=== PATIENT | female | born 1955 | race Caucasian/White ===

== ENCOUNTER → 2018-04-30 | Outpatient (CLI) | payer OTHER ==
[2012-04-18 09:20] VITALS: BP 124/84
[2018-04-30 10:06] LABS: EOS # 0.3 (0.04-0.40); EOS % 5.6 % (1.0-5.0); HEMATOCRIT 37.8 % (37.0-47.0); HEMOGLOBIN 11.9 g/dL (12.5-16.0); LYMPH# 1.9 (1.50-4.00); MEAN CELL VOLUME 94 fl (78-100); MEAN CORPUSCULAR HEMOGLOBIN 30 pg (27-31); MEAN CORPUSCULAR HGB CONC 32 g/dL (33-37); MEAN PLATELET VOLUME 10.1 fl (7.4-10.4); MONO # 0.4 (0.20-0.80); NEU # 2.4 (1.40-6.50); PLATELET COUNT 211 K/mm3 (130-400); RED BLOOD COUNT 4.03 M/mm3 (4.10-5.30); RED CELL DISTRIBUTION WIDTH 14.2 % (11.5-14.5)
[2018-04-30 10:21] LABS: ALBUMIN 3.7 g/dL (3.5-5.0); BUN/CREATININE RATIO 33.2 (6.0-26.0); CALCIUM 8.9 mg/dL (8.4-10.2); POTASSIUM 4.5 mmol/L (3.6-5.0); TOTAL BILIRUBIN 0.3 mg/dL (0.2-1.3); TOTAL PROTEIN 7.6 g/dL (6.3-8.2)
== END ==
LOC: LAB 09:49
PROVIDERS: Nurse Practitioner Family
DX: F33.1 Major depressive disorder, recurrent, moderate (principal); M51.37 Other intervertebral disc degeneration, lumbosacral region; N76.1 Subacute and chronic vaginitis

== ENCOUNTER → 2020-04-23 | Outpatient (CLI) | payer OTHER ==
[2012-04-18 09:20] VITALS: BP 124/84
[2020-04-23 16:36] LABS: EOS # 0.2 (0.04-0.40); HEMOGLOBIN 11.7 g/dL (12.5-16.0); LYMPH# 2.2 (1.50-4.00); MEAN CELL VOLUME 95 fl (78-100); MEAN CORPUSCULAR HEMOGLOBIN 30 pg (27-31); MEAN CORPUSCULAR HGB CONC 32 g/dL (33-37); MEAN PLATELET VOLUME 10.2 fl (7.4-10.4); MONO # 0.4 (0.20-0.80); NEU # 3.1 (1.40-6.50); PLATELET COUNT 214 K/mm3 (130-400); RED BLOOD COUNT 3.91 M/mm3 (4.10-5.30); RED CELL DISTRIBUTION WIDTH 13.4 % (11.5-14.5)
[2020-04-23 16:40] LABS: ALBUMIN 3.9 g/dL (3.4-4.8); POTASSIUM 4.1 mmol/L (3.5-5.1)
[2020-04-23 16:42] LABS: CALCIUM 9.4 mg/dL (8.3-10.5)
[2020-04-23 16:43] LABS: TOTAL PROTEIN 7.3 g/dL (6.2-8.1)
[2020-04-23 16:45] LABS: TOTAL BILIRUBIN 0.3 mg/dL (0.2-1.2)
== END ==
LOC: LAB 16:18
PROVIDERS: Physician Assistant
DX: Z13.220 Encounter for screening for lipoid disorders (principal); Z23 Encounter for immunization; Z76.89 Persons encountering health services in other specified circumstances; R63.5 Abnormal weight gain; Q82.9 Congenital malformation of skin, unspecified

== ENCOUNTER → 2021-11-23 | Outpatient (CLI) | payer MEDICARE, OTHER | LOC: MAMMO 11-16 14:30 | DX: Z12.31 Encounter for screening mammogram for malignant neoplasm of breast (principal) ==

== ENCOUNTER → 2021-12-01 | Outpatient (CLI) | payer MEDICARE, OTHER | LOC: RAD 16:33 | DX: M25.571 Pain in right ankle and joints of right foot (principal) ==

== ENCOUNTER → 2022-03-02 | Outpatient (CLI) | payer MEDICARE, OTHER | LOC: RAD 13:49 | DX: S99.912A Unspecified injury of left ankle, initial encounter (principal); X58.XXXA Exposure to other specified factors, initial encounter ==

== ENCOUNTER → 2022-09-14 | Outpatient (CLI) | payer MEDICARE, OTHER | LOC: RAD 15:18 | DX: M79.641 Pain in right hand (principal); M79.89 Other specified soft tissue disorders ==

== ENCOUNTER → 2023-12-06 | Outpatient (CLI) | payer MEDICARE, OTHER | LOC: RAD 16:43 | DX: M51.36 Other intervertebral disc degeneration, lumbar region (principal); M48.061 Spinal stenosis, lumbar region without neurogenic claudication; M43.16 Spondylolisthesis, lumbar region; M48.07 Spinal stenosis, lumbosacral region; Z98.1 Arthrodesis status | CPT/HCPCS: A9575 ==

== ENCOUNTER → 2024-02-14 | Outpatient (CLI) | payer MEDICARE, OTHER ==
[2024-02-14 16:22] LABS: BASO # 0.02 K/mm3 (0.02-0.10); EOS # 0.16 K/mm3 (0.04-0.40); EOS % 2.5 % (1.0-5.0); HEMATOCRIT 37.7 % (37.0-47.0); HEMOGLOBIN 12.2 g/dL (12.5-16.0); LYMPH# 1.97 K/mm3 (1.50-4.00); MEAN CELL VOLUME 94 fl (78-100); MEAN CORPUSCULAR HEMOGLOBIN 30 pg (27-31); MEAN CORPUSCULAR HGB CONC 32 g/dL (33-37); MEAN PLATELET VOLUME 9.8 fl (7.4-10.4); MONO # 0.34 K/mm3 (0.20-0.80); NEU # 3.97 K/mm3 (1.40-6.50); PLATELET COUNT 221 K/mm3 (130-400); RED BLOOD COUNT 4.02 M/mm3 (4.10-5.30); RED CELL DISTRIBUTION WIDTH 13.1 % (11.5-14.5); WHITE BLOOD COUNT 6.5 K/mm3 (4.8-10.8)
[2024-02-14 16:29] LABS: ALBUMIN 3.9 g/dL (3.4-4.8)
[2024-02-14 16:30] LABS: CALCIUM 9.7 mg/dL (8.3-10.5)
[2024-02-14 16:31] LABS: TOTAL PROTEIN 6.9 g/dL (6.2-8.1)
[2024-02-14 16:33] LABS: TOTAL BILIRUBIN 0.3 mg/dL (0.2-1.2)
[2024-02-14 16:38] LABS: MAGNESIUM 1.55 mg/dL (1.60-2.60)
== END ==
LOC: LAB 15:25
PROVIDERS: Physician Assistant
DX: Z13.29 Encounter for screening for other suspected endocrine disorder (principal); E78.5 Hyperlipidemia, unspecified; K90.9 Intestinal malabsorption, unspecified; R53.83 Other fatigue; R25.2 Cramp and spasm

== ENCOUNTER → 2024-07-17 | Outpatient (CLI) | payer MEDICARE, OTHER | LOC: MAMMO 06-30 15:00 | DX: Z12.31 Encounter for screening mammogram for malignant neoplasm of breast (principal) ==